=== PATIENT | female | born 2005 | race Caucasian/White ===

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

== ENCOUNTER 2024-08-04 08:59 | Inpatient (IN) | payer SELFPAY ==
[2024-08-04] VITALS (18 sets, daily range): BP systolic 104–167; BP diastolic 54–82; PULSE 57–102; RESP 16–17; TEMP 36.7–37.1; O2SAT 97
--- NOTE | 2024-08-04 09:05 | PM.DELIVERY ---
Delivery Note: Date of delivery: August 04, 2024 Pre-delivery diagnoses: patient with no care transfer from outside clinic arrived with painful uterine contractions cervical exam showed complete dilatation, head at +3 station Post-delivery diagnoses: patient delivered after one push vigorous female infant cord gases and blood obtained normal placenta and cord right labial laceration, hemostatic, not repaired otherwise intact perineum Procedure: vaginal delivery Op report anesthesia: None Delivering Physician: Oneil Baxter MD Estimated blood loss (mL): 300 Findings: patient delivered after one push vigorous female cord gases and blood obtained normal placenta and cord right labial laceration, hemostatic, not repaired otherwise intact perineum Delivery: vaginal Post-Delivery Status: good A&P Assessment and plan (1) Vaginal delivery: Coding Level of Care Code Acute Code for Chg Fwd Diagnoses Vaginal delivery O80 Time Spent (min) 60
--- NOTE | 2024-08-04 09:05 | P.PN_ITS ---
MANGLE TENDER Subjective 2 Subjective: Interval history: August 04, 2024, 0750 Telephone call from chief librarian branch or department at [facility] Provider at [facility] called, requesting transfer of a patient with no care, Presented there in active labor Cervix at 5 cm I informed CNO that since the patient is not stable for transfer, I will decline the transfer. Labor: Station: +2 Amniotic Membrane Status: Ruptured Vitals/I&O/Wt Last Vital Signs Temp 98 F 08/05/24 13:16 Pulse 70 08/05/24 13:16 Resp 16 08/05/24 13:16 BP 115/73 08/05/24 13:16 Pulse Ox 98 08/05/24 13:16 O2 Del Method Room Air 08/05/24 09:41 Weight last 48 hrs Weight 131 lb Data 08/04/24 20:59 Attestations 2 Medical Necessity Statement*: telephone call Coding Level of Care Code Acute Code for Chg Fwd Time Spent (min) 10
--- NOTE | 2024-08-04 09:10 | P.PN_ITS ---
TANK TRUCK OPERATOR Subjective 2 Subjective: Interval history: August 04, 2024, [address] Morales of [facility] He urgently requesting transfer of patient There is no ob or pediatric service at his facility, which is more a clinic than ER It would be extremely dangerous for a premature fetus if it is delivered at the clinic the distance from clinic to [facility], is 30 minutes, while it will take more than 60-90 minutes to get an NICU to send a crew to his facility Due to the very limited time window available, the dire circumstances, and the sole consideration for the welfare of the mother and fetus, I accepted the transfer with the understanding that the patient may deliver or suffer complications en route. Labor: Station: +2 Amniotic Membrane Status: Ruptured Vitals/I&O/Wt Last Vital Signs Temp 98 F 08/05/24 13:16 Pulse 70 08/05/24 13:16 Resp 16 08/05/24 13:16 BP 115/73 08/05/24 13:16 Pulse Ox 98 08/05/24 13:16 O2 Del Method Room Air 08/05/24 09:41 Weight last 48 hrs Weight 131 lb Data 08/04/24 20:59 Attestations 2 Medical Necessity Statement*: telephone call Coding Level of Care Code Acute Code for Chg Fwd Time Spent (min) 10
--- NOTE | 2024-08-04 09:15 | PM.OBGYHP ---
Providers/Chief Complaint Admitting Physician: Oneil Baxter MD Primary PROBE OPERATOR: none Primary Care Provider: Octavio Hidalgo Chief Complaint: Active labor unknown gestation HPI PROBE OPERATOR History of Present Illness August 04, 2024, 909 Brief H&P Patient arrived in L&D delivering See delivery note Unable to obtain complete history and physical 18 y.o. No care for this Previous resulted in vaginal delivery of stillbirth at 37 weeks Patient does not know cause of stillbirth No other medical or surgical history On no medications Patient admitted for vaginal delivery and care Present Details : 4 Para: 1 Labs Rubella: Non-Immune RPR: Negative GBS: Unknown Medications/Allergies Home Medications Medication Instructions Recorded Confirmed Last Taken Type fluoxetine 10 mg capsule 10 mg PO DAILY 08/04/24 08/04/24 Unknown History ferrous fumarate-folic acid 324 mg 1 tab PO DAILY #30 tabs 08/05/24 Unknown Rx (106 mg iron)-1 mg tablet (Hemocyte-F) Allergies Allergy/AdvReac Type Severity Reaction Status Date / Time No Known Allergies Allergy Verified 09/06/20 10:31 PFSH PROBE OPERATOR PFSH: Medical History (Updated 08/04/24 @ 13:14 by Oneil Baxter MD) Restrictive airway disease Lower respiratory infection Threatened Vitals/I&O/Wt Last Vital Signs Temp 98 F 08/05/24 13:16 Pulse 70 08/05/24 13:16 Resp 16 08/05/24 13:16 BP 115/73 08/05/24 13:16 Pulse Ox 98 08/05/24 13:16 O2 Del Method Room Air 08/05/24 09:41 Weight last 48 hrs Weight 131 lb Data 08/04/24 20:59 Results Labs OB ([facility]): Obstetrics US 08/21/20 Blood Type O Positive 08/04/24 Antibody Screen Negative 08/04/24 Hct 26.1 % (36-47) L 08/04/24 Hgb 8.00 g/dL (12.4-14.8) L 08/04/24 Rho(D) Type Rh positive 08/04/24 Plt Count 310 10^3/cmm (157-399) 08/04/24 Hep Bs Antigen Non-reactive (Nonreactive) 08/04/24 Rubella IgG Antibody 0.2 IU/mL (0.0-10.0) 08/04/24 RPR Nonreactive (Nonreactive) 08/04/24 HIV 1&2 Ab & HIV 1 Ag Non-reactive (Non-Reactiv) 08/04/24 C.trachomatis RNA (TMA) Not detected (NOT DETECTED) 08/04/24 N.gonorrhoeae RNA (TMA) Not detected (NOT DETECTED) 08/04/24 Chlamydia/GC Comment See note 08/04/24 Ser , Semi-Qnt 47204.00 mIU/mL 08/21/20 Urine Opiates Screen Negative ng/mL (Negative) 08/04/24 Ur Barbiturates Screen Negative ng/mL (Negative) 08/04/24 Ur Phencyclidine Scrn Negative ng/mL (Negative) 08/04/24 Ur Amphetamines Screen Positive ng/mL (Negative) H 08/04/24 U Benzodiazepines Scrn Negative ng/mL (Negative) 08/04/24 Urine Cocaine Screen Negative ng/mL (Negative) 08/04/24 U Marijuana (THC) Screen Positive ng/mL (Negative) H 08/04/24 Attestations Medical Necessity Statement*: patient with no care, presented with active labor, complete and +3 station Coding Level of Care Code Acute Code for Chg Fwd Time Spent (min) 60
[2024-08-04] MEDS: oxytocin 30 UNIT/500 ML BAG 600 UNIT IV (09:20)
[2024-08-04] MEDS: ondansetron 2 mg/ML SDV 2 mL 4 MG IVP (09:26)
[2024-08-04] MEDS: HYDROcodone-acetaminophen 5-325 mg Tablet PO ×2 (09:27→18:11)
[2024-08-04] MEDS: benzocaine-menthol 78 gm Canister 1 SPRAY TOPICAL (09:27)
[2024-08-04] MEDS: lidocaine 2% INJ 20 mL INJECTION (09:30)
[2024-08-04 09:45] LABS: Amphetamines Screen Urine Positive (Negative); Barbiturates Screen Urine Negative (Negative); Benzodiazepines Screen Urine Negative (Negative); Cocaine Screen Urine Negative (Negative); Opiate Screen Urine Negative (Negative); PCP Screen Urine Negative (Negative); THC Screen Urine Positive (Negative)
[2024-08-04] MEDS: ibuprofen 800 mg tablet PO ×3 (09:47→20:56)
[2024-08-04 09:51] LABS: Basophils % 0.2 %; Eosinophils % 0.1 %; Hematocrit 30.2 % (36-47); Lymphocytes # 1.1 10^3/uL (1.5-6.5); Lymphocytes % 6.3 %; Mean Corpuscular HGB Conc 30.8 g/dL (30-55); Mean Corpuscular Hemoglobin 25.8 pg (27-33); Mean Corpuscular Volume 83.7 fl (85-98); Monocytes # 0.6 10^3/uL (0.2-0.9); Monocytes % 3.6 %; Neutrophils # 15.53 10^3/uL (1.8-8.0); Neutrophils % 89.2 %; Nucleated Red Blood Cells % 0 %; Platelet Count 291 10^3/cmm (157-399); Red Blood Count 3.61 10^6/uL (3.85-5.65); White Blood Count 17.42 10^3/uL (4.5-13.0)
[2024-08-04 10:19] LABS: Hepatitis B Surface Antigen Non-Reactive (Nonreactive)
[2024-08-04 10:22] LABS: Rubella IgG 0.2 IU/mL (0.0-10.0)
[2024-08-04 10:29] LABS: Rapid Plasma Reagin Syphilis Nonreactive (Nonreactive)
[2024-08-04 10:51] LABS: HIV 1 & 2 Antibody Non-Reactive (Non-Reactiv); HIV 1 & 2 Antigen Non-Reactive (Non-Reactiv)
--- NOTE | 2024-08-04 11:15 | PC.NURSE ---
Report received from SHER Parikh at [facility] at 0826 that pt is coming via ambulance, unknown gestation, probable active labor, 5cm dilation. Pt arrived to department via EMS at 0859. Pt taken immediately to OB4 and moved to bed. SVE by RN pt 10cm/100%/+[address] Baxter at bedside and prepping for delivery. Dr Mohr called at office to come for delivery of unknown gestation. Pt encouraged to push and delivered a viable female at 0901. Baby was dried/stimulated and assessed on mothers abdomen, then cord was clamped/cut by Dr Baxter and baby taken to warmer for further assessment at 0902. Placenta was delivered at 0915 intact, pitocin bolus given as ordered. Straight cath urine collection after alice care performed. Chux changed and pt instructed to call nursing for assistance getting up out of bed the first time. Routine labs drawn x1 stick to right hand. Routine post care discussed with pt and family.
[2024-08-04] MEDS: docusate sodium 100 mg Capsule PO (18:11)
[2024-08-04 21:10] LABS: Hematocrit 26.1 % (36-47); Mean Corpuscular HGB Conc 30.7 g/dL (30-55); Mean Corpuscular Hemoglobin 25.6 pg (27-33); Mean Corpuscular Volume 83.4 fl (85-98); Mean Platelet Volume 10.9 fL (7.4-10.4); Platelet Count 310 10^3/cmm (157-399); Red Blood Count 3.13 10^6/uL (3.85-5.65); White Blood Count 13.35 10^3/uL (4.5-13.0)
[2024-08-05 05:59] VITALS: BP 118/67; PULSE 85; RESP 16; TEMP 36.6; O2SAT 99
[2024-08-05] MEDS: HYDROcodone-acetaminophen 5-325 mg Tablet PO (06:21)
--- NOTE | 2024-08-05 08:09 | PC.NURSE ---
THIS RN OBSERVED PATIENT HOLDING IN HER BED, PATIENT APPEARED VERY DROWSY. EDUCATION PROVIDED THAT IF SHE WAS SLEEPY SHE NEEDED TO PLACE INFANT IN CRIB FOR SAFETY, PATIENT VERBALLY ACKNOWLEDGED THE EDUCATION AND HER SIGNIFICANT OTHER ALSO VERBALLY ACKNOWLEDGED THAT INFANT SHOULD BE PLACED IN CRIB IF THEY ARE SLEEPY.
[2024-08-05] MEDS: ibuprofen 800 mg tablet PO (08:58)
[2024-08-05] MEDS: docusate sodium 100 mg Capsule PO (08:58)
[2024-08-05] MEDS: PRENATAL VIT NO.130/IRON/FOLIC 1 EACH TABLET PO (08:58)
[2024-08-05 09:41] VITALS: BP 105/68; PULSE 70; RESP 15; TEMP 36.6; TEMP 36.7; O2SAT 98
--- NOTE | 2024-08-05 13:10 | P.PN_ITS ---
TUFTING MACHINE FIXER Subjective 2 Subjective: Interval history: no c/o no bleeding, pain eating, voiding, ambulating well caring for without any problems Labor: Station: +2 Amniotic Membrane Status: Ruptured Vitals/I&O/Wt Last Vital Signs Temp 98 F 08/05/24 13:16 Pulse 70 08/05/24 13:16 Resp 16 08/05/24 13:16 BP 115/73 08/05/24 13:16 Pulse Ox 98 08/05/24 13:16 O2 Del Method Room Air 08/05/24 09:41 Weight last 48 hrs Weight 131 lb Physical Exam 2 Narrative: afebrile, VS normal comfortable, awake, alert Abd: soft, nontender. fundus firm Ext: no edema; nontender Data 08/04/24 20:59 A&P Assessment and plan (1) Vaginal delivery: PPD #1 doing well discharge to home today instructions and precautions given call/return if fever, chills, headache, blurry vision, nausea, vomiting, abdominal pain; vaginal bleeding or discharge; shortness of breath, chest pain, leg pains or swelling; inability to void, perineal pain or swelling; feelings of depression or mood changes; thoughts of suicide or harming others; inability to care for baby. (2) Anemia: Rx ferrous fumarate one po daily f/u in 2 weeks or PRN Attestations 2 Medical Necessity Statement*: patient s/p vaginal delivery, plan to discharge to home today Coding Level of Care Code Acute Code for Chg Fwd Diagnoses Vaginal delivery O80 Anemia D64.9 Time Spent (min) 20
[2024-08-05 13:16] VITALS: BP 115/73; PULSE 70; RESP 16; TEMP 36.6; O2SAT 98
--- NOTE | 2024-08-05 13:30 | PM.OBGYDC ---
Discharge Providers COMPASS OPERATOR Date of Admission: 08/04/24 08:59 Date of Discharge: 08/05/24 Attending Provider at Admission: Oneil Baxter MD Attending Provider at Discharge: Oneil Baxter MD Consults: none Primary COMPASS OPERATOR: none Primary Care Provider: Octavio Hidalgo Diagnoses at Discharge Discharge Diagnosis (1) Vaginal delivery: Details from hospital stay: 18 y.o. no care unknown gestational age presented with active labor, transfer from another facility cervical exam on arrival was complete, +3 station, cephalic presentation patient delivered vaginally without any complications urine drug screen was positive for amphetamines and marijuana there were no complications and patient was discharged to home on the first day Status: Acute (2) Anemia: Details from hospital stay: patient was discharged with prescription for ferrous fumarate one po daily Status: Acute Reason for Visit Reason for Visit: Active labor unknown gestation Brief History: 18 y.o. no care unknown gestational age presented with active labor, transfer from another facility Hospital Course Hospital Course 18 y.o. no care unknown gestational age presented with active labor, transfer from another facility cervical exam on arrival was complete, +3 station, cephalic presentation patient delivered vaginally without any complications urine drug screen was positive for amphetamines and marijuana there were no complications and patient was discharged to home on the first day Information Peripartum Data: Delivery Method: Vaginal Laceration description: Labial Episiotomy description: None complications: none Physical Exam Narrative: afebrile, VS normal comfortable, awake, alert Abd: soft, nontender. fundus firm Ext: no edema; nontender Discharge Data Studies Completed and Pending Laboratory Results WBC 13.35 10^3/uL (4.5-13.0) H 08/04/24 20:59 RBC 3.13 10^6/uL (3.85-5.65) L 08/04/24 20:59 Hgb 8.00 g/dL (12.4-14.8) L 08/04/24 20:59 Hct 26.1 % (36-47) L 08/04/24 20:59 MCV 83.4 fl (85-98) L 08/04/24 20:59 MCH 25.6 pg (27-33) L 08/04/24 20:59 MCHC 30.7 g/dL (30-55) 09/24/24 20:59 RDW 14.0 % (12.1-15.1) 08/04/24 20:59 Plt Count 310 10^3/cmm (157-399) 08/04/24 20:59 MPV 10.9 fL (7.4-10.4) H 08/04/24 20:59 Neut % (Auto) 89.2 % 08/04/24 09:35 Lymph % (Auto) 6.3 % 08/04/24 09:35 [place] % (Auto) 3.6 % 08/04/24 09:35 Eos % (Auto) 0.1 % 08/04/24 09:35 Baso % (Auto) 0.2 % 08/04/24 09:35 Neut # (Auto) 15.53 10^3/uL (1.8-8.0) H 08/04/24 09:35 Lymph # (Auto) 1.1 10^3/uL (1.5-6.5) L 08/04/24 09:35 [place] # (Auto) 0.6 10^3/uL (0.2-0.9) 08/04/24 09:35 Eos # (Auto) 0.0 10^3/uL (0.0-0.8) 08/04/24 09:35 Baso # (Auto) 0.0 10^3/uL (0.0-0.1) 08/04/24 09:35 Nucleated RBC % (auto) 0 % 08/04/24 09:35 Nucleated RBCs # 0.0 /100WBC 08/04/24 09:35 Urine Opiates Screen Negative ng/mL (Negative) 08/04/24 09:25 Ur Barbiturates Screen Negative ng/mL (Negative) 08/04/24 09:25 Ur Phencyclidine Scrn Negative ng/mL (Negative) 08/04/24 09:25 Ur Amphetamines Screen Positive ng/mL (Negative) H 08/04/24 09:25 U Benzodiazepines Scrn Negative ng/mL (Negative) 08/04/24 09:25 Urine Cocaine Screen Negative ng/mL (Negative) 08/04/24 09:25 U Marijuana (THC) Screen Positive ng/mL (Negative) H 08/04/24 09:25 RPR Nonreactive (Nonreactive) 08/04/24 09:35 C.trachomatis RNA (TMA) Not detected (NOT DETECTED) 08/04/24 09:25 Chlamydia/GC Comment See note 08/04/24 09:25 Hep Bs Antigen Non-reactive (Nonreactive) 08/04/24 09:35 HIV 1&2 Ab & HIV 1 Ag Non-reactive (Non-Reactiv) 08/04/24 09:35 HIV 1&2 Antibody Non-reactive (Non-Reactiv) 08/04/24 09:35 N.gonorrhoeae RNA (TMA) Not detected (NOT DETECTED) 08/04/24 09:25 Rubella IgG Antibody 0.2 IU/mL (0.0-10.0) 08/04/24 09:35 Blood Type O Positive 08/04/24 09:35 Rho(D) Type Rh positive 08/04/24 09:35 Antibody Screen Negative 08/04/24 09:35 Procedures Performed vaginal delivery Vitals Last Vital Signs Temp 98 F 08/05/24 13:16 Pulse 70 08/05/24 13:16 Resp 16 08/05/24 13:16 BP 115/73 08/05/24 13:16 Pulse Ox 98 08/05/24 13:16 O2 Del Method Room Air 08/05/24 09:41 Results Labs OB ([facility]): Obstetrics US 08/21/20 Blood Type O Positive 08/04/24 Antibody Screen Negative 08/04/24 Hct 26.1 % (36-47) L 08/04/24 Hgb 8.00 g/dL (12.4-14.8) L 08/04/24 Rho(D) Type Rh positive 08/04/24 Plt Count 310 10^3/cmm (157-399) 08/04/24 Hep Bs Antigen Non-reactive (Nonreactive) 08/04/24 Rubella IgG Antibody 0.2 IU/mL (0.0-10.0) 08/04/24 RPR Nonreactive (Nonreactive) 08/04/24 HIV 1&2 Ab & HIV 1 Ag Non-reactive (Non-Reactiv) 08/04/24 C.trachomatis RNA (TMA) Not detected (NOT DETECTED) 08/04/24 N.gonorrhoeae RNA (TMA) Not detected (NOT DETECTED) 08/04/24 Chlamydia/GC Comment See note 08/04/24 Ser , Semi-Qnt 89491.00 mIU/mL 08/21/20 Urine Opiates Screen Negative ng/mL (Negative) 08/04/24 Ur Barbiturates Screen Negative ng/mL (Negative) 08/04/24 Ur Phencyclidine Scrn Negative ng/mL (Negative) 08/04/24 Ur Amphetamines Screen Positive ng/mL (Negative) H 08/04/24 U Benzodiazepines Scrn Negative ng/mL (Negative) 08/04/24 Urine Cocaine Screen Negative ng/mL (Negative) 08/04/24 U Marijuana (THC) Screen Positive ng/mL (Negative) H 08/04/24 Discharge Plan Discharge Patient Disposition: Home Condition: Stable Prescriptions: New Hemocyte-F 324 mg (106 mg iron)-1 mg tablet 1 tab PO DAILY Qty: 30 12RF Rx Instructions: administer between meals Continued fluoxetine 10 mg Capsule 10 mg PO DAILY Discharge Orders: Discharge Order (Routine); Ordered 08/05/24 Ordered By: Oneil Baxter Referrals: Za Delgadillo NP [Nurse Practitioner] - 08/18/24 1:15 pm Discharge Diet: Usual diet Discharge Activity: Increase activity as tolerated Patient Instructions: Depression (DC), Opioid Safety (DC), Preeclampsia and Eclampsia After Delivery (GEN), Hemorrhage (DC), OB Discharge Report, OB Food/Drug Interaction Guide, Opioid Safety, OB Home Care, OB Vaginal Deliveries - [facility], Abnormal Bleeding Activity Restrictions/Additional Instructions: Please make appointment for two weeks in clinic Discharge Attestations COMPASS OPERATOR Time Spent in Discharge Care*: less than 30 min Coding Level of Care Code Acute Code for Chg Fwd Diagnoses Vaginal delivery O80 Anemia D64.9 Time Spent (min) 20
[2024-08-05 15:43] LABS: Chlamydia Trachomatis RNA TMA NOT DETECTED (NOT DETECTED); Neisseria Gonorrhoeae RNA, TMA NOT DETECTED (NOT DETECTED)
== END 2024-08-05 13:18 | disposition home or self-care (01) | DRG 807 ==
PROVIDERS: Admitting Provider Obstetrics & Gynecology; PCP Nurse Practitioner Family; Visit Provider Obstetrics & Gynecology
DX: O99.013 Anemia complicating pregnancy, third trimester (principal); Z37.0 Single live birth; D64.9 Anemia, unspecified; O70.0 First degree perineal laceration during delivery; Z3A.00 Weeks of gestation of pregnancy not specified
CPT/HCPCS: 36415; 59409; 80306; 85025; 85027; 86592; 86762; 86850; 86900; 87340; 87491; 87591; 87806; 98960; J2405; J2590

== ENCOUNTER 2025-08-21 13:38 | Emergency (ER) | payer MEDICAID, SELFPAY ==
--- OUTSIDE RECORDS SUMMARY | 2018-01-09 04:47 | XMS_ITS | Continuity of Care Document ---
Author Organization [facility] Address [address] et [address] [place] [address] Phone Care Team Providers Care Regional Director Name Role Phone Unavailable Unavailable Unavailable Advance Directives Directive Yes / No Effective Date File Name No Information Encounters Encounter Description Practice Location Reason(s) For Visit Diagnoses Date Provider Providers Copied on Encounter [facility], [place], [address] [place] [address], [id number], [place] tel:[phone] [facility] No Information Mar-0 1-201 8 No Information Family History Family Member Type Diagnosis Age At Onset Distant Relative Problem (finding) Marfan syndrome Problem (finding) No family history of Craft dden Problem (finding) No family hist ory of Diabetes Mellitus Problem (finding) No family hist ory of Cardiomyopathy - hypertrophic Maternal Grandmother Problem (finding) Marfan syndrome Mother Problem (finding) Marfan syndrome Problem (finding) No family hist ory of Cardiomyopathy - dilated Problem (finding) No family hist ory of Congenital Heart Disease Problem (finding) No family history of Ar rhythmia Problem (finding) No family history of Hy pertension Problem (finding) No family hist ory of Premature CAD Payers Payer name Insurance type Covered alliance party ID Authoriza tion(s) [facility] [id number] Social History Type Description Quantity Date Captured Comments Sex Female Smoking Status No Information Chief Complaint And Reason For Visit No Information History Of Present Illness Encounter Date Complaint History Of Prese nt Illness No Information Instructions Date Instruction Additional Infor mation No Information Assessments Type Assessment Date No Information
[2025-08-21 13:34] VITALS: BP 95/70; PULSE 107; RESP 18; TEMP 36.7; O2SAT 100; BMI 16.1
--- NOTE | 2025-08-21 13:42 | USR_ITS ---
PROCEDURE INFORMATION: Exam: US Pelvis, Transvaginal, Non-Obstetric Exam date and time: 08/21/2025 2:19 PM Age: 19 years old Clinical indication: Other: Bleeding; Additional info: Vaginal bleeding/pain TECHNIQUE: Imaging protocol: Real-time transvaginal pelvic (non-obstetric) ultrasound with image documentation. Transvaginal imaging was used for better evaluation of the endometrium, adnexa, and/or cervix. COMPARISON: US OB <=14 wk fetus w transvag 08/21/2020 9:14 AM FINDINGS: Uterus: Endometrial stripe is normal for premenopausal woman measuring 8 mm. Right ovary/adnexa: Right ovary 6 mm hyperechoic area may reflect a small hemorrhagic follicle, consider short-term follow-up in 4-6 weeks to assess for resolution. Color blood flow is seen in the right ovary. Left ovary/adnexa: Normal. No mass. Normal ovarian blood flow on color Doppler. Urinary bladder: Urinary bladder is limited. Intraperitoneal space: No free fluid. US/US transvaginal [id number] IMPRESSION: Right ovary 6 mm hyperechoic area may reflect a small hemorrhagic follicle, consider short-term follow-up in 4-6 weeks to assess for resolution. Color blood flow is seen in the right ovary.
--- NOTE | 2025-08-21 13:47 | ED_ITS ---
Documented by User: [email or web address] Douglas 08/21/25 16:48 HPI - Female Genitourinary 2 General: Chief complaint: Vaginal Bleeding Stated complaint: VAG BLEEDING Source: patient Mode of arrival: EMS Limitations: no limitations History of Present Illness: Patient is a 19-year-old female, A1 who presents to the emergency department by EMS, from shelter, due to vaginal bleeding. She states that she is a couple of weeks late on her menstrual cycle, and had sudden onset bleeding today with pain and states that she has never had pain with menstruation. She is also reporting lower abdominal cramping and feeling dizzy. She reportedly had court yesterday, arrives requesting phone calls. No other pertinent female history, denies history of ectopic or torsion or tubo-ovarian abscess. Denies any chest pain, shortness of breath, vomiting/diarrhea. She is noting some nausea at this time. Also is requesting something to eat. Vitals are stable at this time. She does not take any oral contraceptive pills. Denies any syncope. MD elicited complaint: vaginal bleeding Pertinent past history: prior miscarriages Onset (ago): hour(s) Quality of pain: cramping Consistency: constant Vaginal discharge: none Vaginal bleeding: moderate Associated symptoms: Reports abdominal pain and nausea; Deny headache(s) or vaginal discharge Related Data Previous Rx's ?Medication ?Instructions ?Recorded doxycycline hyclate 100 mg tablet 100 mg PO BID 7 days #14 tabs 08/21/25 Allergies Allergy/AdvReac Type Severity Reaction Status Date / Time No Known Allergies Allergy Verified 08/20/24 10:46 Review of Systems 2 General: Reports: 10 or more systems reviewed and unremarkable except in HPI and below Const: Denies: fever(s), chills, change in appetite, change in weight or diaphoresis ENMT: Denies: throat pain or hoarseness Card: Denies: chest pain, palpitations or lightheadedness Resp: Denies: dyspnea, productive cough or wheezing GI: Reports: abdominal pain, nausea and GI cramping; Denies: vomiting, diarrhea, constipation, bloating, change in stool character or hematochezia : Reports: vaginal bleeding and dysmenorrhea; Denies: flank pain, difficulty voiding, dysuria, urinary frequency, urinary urgency or vaginal discharge Musc: Denies: neck pain or back pain Skin/Breast: Denies: rash or new lesions Neuro: Denies: headache(s) or dizziness PFSH ED 2 PFSH: Medical History Vaginal delivery Restrictive airway disease Lower respiratory infection Threatened Physical Exam 2 Const: COMMON NORMALS: no acute distress, patient oriented x3, no limitations, healthy appearing, alert and well nourished GENERAL APPEARANCE: cooperative and anxious NUTRITIONAL APPEARANCE: thin ORIENTATION/CONSCIOUSNESS: Yes awake OTHER: nontoxic Neck/C-Spine: COMMON NORMALS: full ROM, supple and no meningeal signs Resp: COMMON NORMALS: normal respiratory effort, No retractions, No use of accessory muscles and clear to auscultation bilaterally AUSCULTATION: clear to auscultation bilaterally, no crackles, no rales, no rhonchi and no wheezes Cardio: COMMON NORMALS: regular rate, regular rhythm, No gallops present (Cardio), No clicks present (Cardio), No murmurs present (Cardio), No rub (Cardio) and Peripheral pulses 2+ throughout RATE: regular rate RHYTHM: r egular rhythm PERIPHERAL PULSES: Peripheral pulses 2+ throughout GI: COMMON NORMALS: Normal to inspection, nondistended, normoactive bowel sounds present, Soft to palpation, non-tender, No hepatosplenomegaly present and no masses AUSCULTATION: Yes normoactive bowel sounds PALPATION: Yes Soft to palpation, No Guarding due to palpation present (GI), No Rigid due to palpation and Yes No hepatosplenomegaly present RECTAL EXAM: deferred Extremity: COMMON NORMALS: normal to inspection and full ROM Neuro: COMMON NORMALS: patient oriented x3, moves all extremities, no focal motor deficits and no sensory deficits noted SENSORIUM/ORIENTATION: Yes alert MENINGEAL SIGNS: Yes no meningeal signs Psych: COMMON NORMALS: mental status grossly normal, cooperative and speech normal SPEECH: Yes normal speech Skin: COMMON NORMALS: no rashes or lesions noted GENERAL SKIN EXAM: no rashes or lesions noted Course 2 Vital Signs: Vital signs: Vital Signs Temperature 98.1 F 08/21/25 13:34 Pulse Rate 107 H 08/21/25 13:34 Respiratory Rate 18 08/21/25 13:34 Blood Pressure 95/70 08/21/25 13:34 Pulse Oximetry 100 08/21/25 13:34 Oxygen Delivery Me thod Room Air 08/21/25 13:34 MDM - Female Medical Decision Making Patient presented from shelter for reports of vaginal bleeding and abdominal cramping. History of 3 prior pregnancies, 2 of which resulted in live births and 1 miscarriage. On exam nontoxic-appearing, she is thin but there is no abdominal tenderness to palpation. Bleeding has since stopped since coming to the ED. All of her lab work is unremarkable, negative . Urinalysis does show evidence of trichomonas and she will be treated with 2 mg p.o. metronidazole here in the emergency department and to be started on doxycycline for empiric coverage of other STI. Transvaginal ultrasound does not show any signs of ectopic or torsion. Overall she is stable for discharge home, she will be referred to [facility] for dysfunctional uterine bleeding and ultimately discharged stable condition at this time. Lab Data 08/21/25 13:48 08/21/25 13:48 Radiology Impressions Transvaginal US 08/21/25 13:42 IMPRESSION: Right ovary 6 mm hyperechoic area may reflect a small hemorrhagic follicle, consider short-term follow-up in 4-6 weeks to assess for resolution. Color blood flow is seen in the right ovary. Laboratory Results WBC 9.52 10^3/uL (3.29-11.43) 08/21/25 13:48 RBC 4.94 10^6/uL (3.85-5.65) 08/21/25 13:48 Hgb 13.40 g/dL (11.27-16.99) 08/21/25 13:48 Hct 43.2 % (36-47) 08/21/25 13:48 MCV 87.4 fl (85-98) 08/21/25 13:48 MCH 27.1 pg (27-33) 08/21/25 13:48 MCHC 31.0 g/dL (30-55) 08/21/25 13:48 RDW 13.5 % (12.1-15.1) 08/21/25 13:48 Plt Count 332 10^3/cmm (157-399) 08/21/25 13:48 MPV 9.6 fL (7.4-10.4) 08/21/25 13:48 Neut % (Auto) 77.1 % 08/21/25 13:48 Lymph % (Auto) 17.2 % 08/21/25 13:48 [place] % (Auto) 4.4 % 08/21/25 13:48 Eos % (Auto) 0.5 % 08/21/25 13:48 Baso % (Auto) 0.6 % 08/21/25 13:48 Neut # (Auto) 7.33 10^3/uL (1.8-7.7) 08/21/25 13:48 Lymph # (Auto) 1.6 10^3/uL (0.8-4.8) 08/21/25 13:48 [place] # (Auto) 0.4 10^3/uL (0.2-0.9) 08/21/25 13:48 Eos # (Auto) 0.1 10^3/uL (0.0-0.8) 08/21/25 13:48 Baso # (Auto) 0.1 10^3/uL (0.0-0.1) 08/21/25 13:48 Nucleated RBC % (auto) 0 % 08/21/25 13:48 Nucleated RBCs # 0.0 /100WBC 08/21/25 13:48 Sodium 139 mmol/L (136-145) 08/21/25 13:48 Potassium 3.8 mmol/L (3.5-5.1) 08/21/25 13:48 Chloride 103 mmol/L (98-107) 08/21/25 13:48 Carbon Dioxide 23 mmol/L (22-29) 08/21/25 13:48 Anion Gap 16.8 (5-19) 08/21/25 13:48 BUN 14 mg/dL (6-20) 08/21/25 13:48 Creatinine 0.8 mg/dL (0.5-0.9) 08/21/25 13:48 GFR Calculation 90.5 mL/min (90-130) 08/21/25 13:48 Glucose 87 mg/dL (65-115) 08/21/25 13:48 Calculated Osmolality 288 mOsm/kg (285-295) 08/21/25 13:48 Calcium 9.2 mg/dL (8.5-10.5) 08/21/25 13:48 Total Bilirubin 0.4 mg/dL (0.15-1.2) 08/21/25 13:48 AST 15 U/L (0-32) 08/21/25 13:48 ALT 10 U/L (0-33) 08/21/25 13:48 Alkaline Phosphatase 69 U/L (35-105) 08/21/25 13:48 Total Protein 7.8 g/dL (6.6-8.7) 08/21/25 13:48 Albumin 4.3 g/dL (3.5-5.2) 08/21/25 13:48 Globulin 3.5 g/dL (1.3-4.6) 08/21/25 13:48 HCG, Qual Negative (Negative) 08/21/25 13:48 Urine Color Yellow (Yellow) 08/21/25 15:46 Urine Appearance Clear (CLEAR) 08/21/25 15:46 Urine pH 5 (5-7) 08/21/25 15:46 Ur Specific [place] 1.020 (1.005-1.030) 08/21/25 15:46 Urine Protein 1+ (Negative) H 08/21/25 15:46 Urine Glucose (UA) Norm (Normal) 08/21/25 15:46 Urine Ketones 1+ (Negative) H 08/21/25 15:46 Urine Blood 3+ (Negative) H 08/21/25 15:46 Urine Nitrate Positive (Negative) A 08/21/25 15:46 Urine Bilirubin Neg (Negative) 08/21/25 15:46 Urine Urobilinogen Neg mg/dL (Negative) 08/21/25 15:46 Ur Leukocyte Esterase 2+ (Negative) H 08/21/25 15:46 Urine RBC 5-10 /hpf (0-2) H 08/21/25 15:46 Urine WBC 25-40 /hpf (0-5) H 08/21/25 15:46 Ur Squamous Epith Cells 15-25 /hpf (0-5) H 08/21/25 15:46 Amorphous Sediment Not Reportable 08/21/25 15:46 Urine Bacteria 3+ /hpf (NONE) H 08/21/25 15:46 Hyaline Casts 0-4 /lpf H 08/21/25 15:46 Urine Mucus 1+ /hpf 08/21/25 15:46 Urine Trichomonas 1+ /hpf H 08/21/25 15:46 Blood Type O Positive 08/21/25 13:48 Rho(D) Type Rh positive 08/21/25 13:48 Antibody Screen Negative 08/21/25 13:48 All radiology interpretation(s) finalized by discharge Discharge Plan Discharge Patient Disposition: Home Clinical Impression: Dysfunctional uterine bleeding, Trichomonal vaginitis Condition: Stable Prescriptions: New doxycycline hyclate 100 mg tablet 100 mg PO BID 7 Days Qty: 14 0RF Discharge Orders: Discharge ED (Routine); Ordered 08/21/25 Ordered By: Cortes Julio Referrals: Octavio Hidalgo FNP [Primary Care Provider, Family Practice] Patient Instructions: Patient Portal & Jos Instructions Activity Restrictions/Additional Instructions: Discharge Instructions: DUB & STI Diagnosis and Treatment: - You have been diagnosed with dysfunctional uterine bleeding and trichomoniasis , a common sexually transmitted infection (STI). - You received a single dose of metronidazole (2 grams) in the emergency department to treat trichomoniasis. - You are starting doxycycline 100 mg twice daily for 7 days for possible additional infection coverage. What to Expect: - Metronidazole should help clear the trichomoniasis infection and reduce symptoms such as vaginal discharge, irritation, or discomfort. - Doxycycline is used to treat possible bacterial infections that can cause cervicitis or pelvic inflammatory disease. - Some side effects of these medications may include nausea, stomach upset, or sensitivity to sunlight. Take doxycycline with a full glass of water and avoid lying down for 30 minutes after taking it. Important Instructions: - Do not have sex for at least 7 days after treatment, and until both you and your partner(s) have completed treatment and are free of symptoms. This helps prevent spreading the infection or getting re-infected. - Your sexual partner(s) should also be treated for trichomoniasis, even if they do not have symptoms, to prevent reinfection. - Avoid alcohol while taking metronidazole and for 24 hours after the last dose, as it can cause unpleasant reactions. - If you experience severe abdominal pain, fever, heavy bleeding, or symptoms that worsen, seek medical attention promptly. Follow-Up: - You will be referred to an [facility] specialist for further evaluation and management of your bleeding and to ensure all infections are treated appropriately. - Return for follow-up testing in about 3 months to make sure the infection is cleared, as recommended for trichomoniasis. - If you have not already been tested for other STIs (such as HIV or syphilis), this will be done at your follow-up visit. General Advice: - Take all medications as prescribed, even if you start feeling better. - Use pads instead of tampons if you are experiencing abnormal bleeding. - Keep a record of your symptoms and any side effects from medications to discuss at your next appointment. Contact Information: - If you have questions or concerns, or if your symptoms worsen, contact your healthcare provider or return to the emergency department. Next Steps: - Attend your scheduled [facility] appointment. - Ensure your partner(s) are treated. - Abstain from sexual activity until cleared by your provider. Thank you for following these instructions to help ensure your recovery and prevent complications. Print Language: Frisian Coding Level of Care Code ED Cloth Folder Hand for Chg Fwd Documented by User: Modesto Leone DO 08/21/25 17:09 HPI - Female Genitourinary 2 General: Chief complaint: Vaginal Bleeding Stated complaint: VAG BLEEDING Related Data Previous Rx's ?Medication ?Instructions ?Recorded doxycycline hyclate 100 mg tablet 100 mg PO BID 7 days #14 tabs 08/21/25 Allergies Allergy/AdvReac Type Severity Reaction Status Date / Time No Known Allergies Allergy Verified 08/20/24 10:46 [facility] ED 2 PFS: Medical History Vaginal delivery Restrictive airway disease Lower respiratory infection Threatened Course 2 Vital Signs: Vital signs: Vital Signs Temperature 98.1 F 08/21/25 13:34 Pulse Rate 107 H 08/21/25 13:34 Respiratory Rate 18 08/21/25 13:34 Blood Pressure 95/70 08/21/25 13:34 Pulse Oximetry 100 08/21/25 13:34 Oxygen Delivery Me thod Room Air 08/21/25 13:34 MDM - Female Medical Decision Making Patient presented from shelter for reports of vaginal bleeding and abdominal cramping. History of 3 prior pregnancies, 2 of which resulted in live births and 1 miscarriage. On exam nontoxic-appearing, she is thin but there is no abdominal tenderness to palpation. Bleeding has since stopped since coming to the ED. All of her lab work is unremarkable, negative . Urinalysis does show evidence of trichomonas and she will be treated with 2 mg p.o. metronidazole here in the emergency department and to be started on doxycycline for empiric coverage of other STI. Transvaginal ultrasound does not show any signs of ectopic or torsion. Overall she is stable for discharge home, she will be referred to [facility] for dysfunctional uterine bleeding and ultimately discharged stable condition at this time. Chart reviewed and patient discussed with midlevel. Agree with assessment and plan. Lab Data 08/21/25 13:48 08/21/25 13:48 Radiology Impressions Transvaginal US 08/21/25 13:42 IMPRESSION: Right ovary 6 mm hyperechoic area may reflect a small hemorrhagic follicle, consider short-term follow-up in 4-6 weeks to assess for resolution. Color blood flow is seen in the right ovary. Laboratory Results WBC 9.52 10^3/uL (3.29-11.43) 08/21/25 13:48 RBC 4.94 10^6/uL (3.85-5.65) 08/21/25 13:48 Hgb 13.40 g/dL (11.27-16.99) 08/21/25 13:48 Hct 43.2 % (36-47) 08/21/25 13:48 MCV 87.4 fl (85-98) 08/21/25 13:48 MCH 27.1 pg (27-33) 08/21/25 13:48 MCHC 31.0 g/dL (30-55) 08/21/25 13:48 RDW 13.5 % (12.1-15.1) 08/21/25 13:48 Plt Count 332 10^3/cmm (157-399) 08/21/25 13:48 MPV 9.6 fL (7.4-10.4) 08/21/25 13:48 Neut % (Auto) 77.1 % 08/21/25 13:48 Lymph % (Auto) 17.2 % 08/21/25 13:48 [place] % (Auto) 4.4 % 08/21/25 13:48 Eos % (Auto) 0.5 % 08/21/25 13:48 Baso % (Auto) 0.6 % 08/21/25 13:48 Neut # (Auto) 7.33 10^3/uL (1.8-7.7) 08/21/25 13:48 Lymph # (Auto) 1.6 10^3/uL (0.8-4.8) 08/21/25 13:48 [place] # (Auto) 0.4 10^3/uL (0.2-0.9) 08/21/25 13:48 Eos # (Auto) 0.1 10^3/uL (0.0-0.8) 08/21/25 13:48 Baso # (Auto) 0.1 10^3/uL (0.0-0.1) 08/21/25 13:48 Nucleated RBC % (auto) 0 % 08/21/25 13:48 Nucleated RBCs # 0.0 /100WBC 08/21/25 13:48 Sodium 139 mmol/L (136-145) 08/21/25 13:48 Potassium 3.8 mmol/L (3.5-5.1) 08/21/25 13:48 Chloride 103 mmol/L (98-107) 08/21/25 13:48 Carbon Dioxide 23 mmol/L (22-29) 08/21/25 13:48 Anion Gap 16.8 (5-19) 08/21/25 13:48 BUN 14 mg/dL (6-20) 08/21/25 13:48 Creatinine 0.8 mg/dL (0.5-0.9) 08/21/25 13:48 GFR Calculation 90.5 mL/min (90-130) 08/21/25 13:48 Glucose 87 mg/dL (65-115) 08/21/25 13:48 Calculated Osmolality 288 mOsm/kg (285-295) 08/21/25 13:48 Calcium 9.2 mg/dL (8.5-10.5) 08/21/25 13:48 Total Bilirubin 0.4 mg/dL (0.15-1.2) 08/21/25 13:48 AST 15 U/L (0-32) 08/21/25 13:48 ALT 10 U/L (0-33) 08/21/25 13:48 Alkaline Phosphatase 69 U/L (35-105) 08/21/25 13:48 Total Protein 7.8 g/dL (6.6-8.7) 08/21/25 13:48 Albumin 4.3 g/dL (3.5-5.2) 08/21/25 13:48 Globulin 3.5 g/dL (1.3-4.6) 08/21/25 13:48 HCG, Qual Negative (Negative) 08/21/25 13:48 Urine Color Yellow (Yellow) 08/21/25 15:46 Urine Appearance Clear (CLEAR) 08/21/25 15:46 Urine pH 5 (5-7) 08/21/25 15:46 Ur Specific [place] 1.020 (1.005-1.030) 08/21/25 15:46 Urine Protein 1+ (Negative) H 08/21/25 15:46 Urine Glucose (UA) Norm (Normal) 08/21/25 15:46 Urine Ketones 1+ (Negative) H 08/21/25 15:46 Urine Blood 3+ (Negative) H 08/21/25 15:46 Urine Nitrate Positive (Negative) A 08/21/25 15:46 Urine Bilirubin Neg (Negative) 08/21/25 15:46 Urine Urobilinogen Neg mg/dL (Negative) 08/21/25 15:46 Ur Leukocyte Esterase 2+ (Negative) H 08/21/25 15:46 Urine RBC 5-10 /hpf (0-2) H 08/21/25 15:46 Urine WBC 25-40 /hpf (0-5) H 08/21/25 15:46 Ur Squamous Epith Cells 15-25 /hpf (0-5) H 08/21/25 15:46 Amorphous Sediment Not Reportable 08/21/25 15:46 Urine Bacteria 3+ /hpf (NONE) H 08/21/25 15:46 Hyaline Casts 0-4 /lpf H 08/21/25 15:46 Urine Mucus 1+ /hpf 08/21/25 15:46 Urine Trichomonas 1+ /hpf H 08/21/25 15:46 Blood Type O Positive 08/21/25 13:48 Rho(D) Type Rh positive 08/21/25 13:48 Antibody Screen Negative 08/21/25 13:48 Discharge Plan Discharge Patient Disposition: Home Clinical Impression: Dysfunctional uterine bleeding, Trichomonal vaginitis Condition: Stable Prescriptions: New doxycycline hyclate 100 mg tablet 100 mg PO BID 7 Days Qty: 14 0RF Discharge Orders: Discharge ED (Routine); Ordered 08/21/25 Ordered By: Cortes Julio Referrals: Octavio Hidalgo FNP [Primary Care Provider, Family Practice] Patient Instructions: Patient Portal & Jos Instructions Activity Restrictions/Additional Instructions: Discharge Instructions: DUB & STI Diagnosis and Treatment: - You have been diagnosed with dysfunctional uterine bleeding and trichomoniasis , a common sexually transmitted infection (STI). - You received a single dose of metronidazole (2 grams) in the emergency department to treat trichomoniasis. - You are starting doxycycline 100 mg twice daily for 7 days for possible additional infection coverage. What to Expect: - Metronidazole should help clear the trichomoniasis infection and reduce symptoms such as vaginal discharge, irritation, or discomfort. - Doxycycline is used to treat possible bacterial infections that can cause cervicitis or pelvic inflammatory disease. - Some side effects of these medications may include nausea, stomach upset, or sensitivity to sunlight. Take doxycycline with a full glass of water and avoid lying down for 30 minutes after taking it. Important Instructions: - Do not have sex for at least 7 days after treatment, and until both you and your partner(s) have completed treatment and are free of symptoms. This helps prevent spreading the infection or getting re-infected. - Your sexual partner(s) should also be treated for trichomoniasis, even if they do not have symptoms, to prevent reinfection. - Avoid alcohol while taking metronidazole and for 24 hours after the last dose, as it can cause unpleasant reactions. - If you experience severe abdominal pain, fever, heavy bleeding, or symptoms that worsen, seek medical attention promptly. Follow-Up: - You will be referred to an [facility] specialist for further evaluation and management of your bleeding and to ensure all infections are treated appropriately. - Return for follow-up testing in about 3 months to make sure the infection is cleared, as recommended for trichomoniasis. - If you have not already been tested for other STIs (such as HIV or syphilis), this will be done at your follow-up visit. General Advice: - Take all medications as prescribed, even if you start feeling better. - Use pads instead of tampons if you are experiencing abnormal bleeding. - Keep a record of your symptoms and any side effects from medications to discuss at your next appointment. Contact Information: - If you have questions or concerns, or if your symptoms worsen, contact your healthcare provider or return to the emergency department. Next Steps: - Attend your scheduled [facility] appointment. - Ensure your partner(s) are treated. - Abstain from sexual activity until cleared by your provider. Thank you for following these instructions to help ensure your recovery and prevent complications. Print Language: Frisian Coding Level of Care Code ED Cloth Folder Hand for Carlitos Guevara
--- OUTSIDE RECORDS SUMMARY | 2025-08-21 13:47 | XMS_ITS | Encounter Summary ---
Author Organization [facility] Address [address] [place] [address] Care Team Providers Care Floor Coverer Name Role Phone Marissa Hull MD Primary Care Provider [phone] Encounter Details Date Type Department Care Team (Latest Contact Info) Description 10/01/2005 Outpatient Historical [facility] Medicine- [address] [phone] Octavio Moore, PA NO ADDRESS ON FILE ACUTE URI NOS (Primary Dx); ALLERGY, UNSPECIFIED Social History Tobacco Use Types Packs/Day Years Used Date Smoking Tobacco: Never Assessed Comments Unknown Sex and Gender Information Value Date Recorded Sex Assigned at Not on file Legal Sex Female 5:07 AM DIRECTOR OF OUTREACH Gender Identity Not on file Sexual Orientation Not on file documented as of this encounter Plan of Treatment Not on file documented as of this encounter Visit Diagnoses Diagnosis Acute upper respiratory infections of unspecified site- Primary Allergy, unspecified not elsewhere classified documented in this encounter Care Teams Floor Coverer Relationship Specialty Start Date End Date Marissa Hull MD [address] [address] PCP - General Family Practice 08/08/18 documented as of this encounter
--- OUTSIDE RECORDS SUMMARY | 2025-08-21 13:47 | XMS_ITS | Encounter Summary ---
Author Organization [facility] Address [address] [place] [address] Care Team Providers Care Automation And Controls Manager Name Role Phone Marissa Hull MD Primary Care Provider [phone] Encounter Details Date Type Department Care Team (Latest Contact Info) Description 07/11/[address] 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
--- OUTSIDE RECORDS SUMMARY | 2025-08-21 13:47 | XMS_ITS | Encounter Summary ---
Author Organization [facility] Address [address] [place] [address] Care Team Providers Care Lumber Press Operator Name Role Phone Marissa Hull MD Primary Care Provider Encounter Details Date Type Department Care Team (Latest Contact Info) Description 02/26/2005 Outpatient Historical [facility] Medicine- [address] [phone] Octavio Moore, PA NO ADDRESS ON FILE ACUTE URI NOS (Primary Dx); INJURY OF FACE AND NECK Social History Tobacco Use Types Packs/Day Years Used Date Smoking Tobacco: Never Assessed Comments Unknown Sex and Gender Information Value Date Recorded Sex Assigned at Not on file Legal Sex Female 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
--- OUTSIDE RECORDS SUMMARY | 2025-08-21 13:47 | XMS_ITS | Encounter Summary ---
Author Organization [facility] Address [address] [place] [address] Care Team Providers Care Mental Health Social Worker Name Role Phone Marissa Hull MD Primary Care Provider Encounter Details Date Type Department Care Team (Latest Contact Info) Description 09/21/2005 Outpatient Historical [facility] Medicine- [address] [phone] Octavio Moore, PA NO ADDRESS ON FILE ACUTE URI NOS (Primary Dx) Social History Tobacco Use Types Packs/Day Years Used Date Smoking Tobacco: Never Assessed Comments Unknown Sex and Gender Information Value Date Recorded Sex Assigned at Not on file Legal Sex Female 5:07 AM PSYCHOTHERAPIST COUNSELOR Gender Identity Not on file Sexual Orientation Not on file documented as of this encounter Plan of Treatment Not on file documented as of this encounter Visit Diagnoses Diagnosis Acute upper respiratory infections of unspecified site- Primary documented in this encounter Care Teams Mental Health Social Worker Relationship Specialty Start Date End Date Marissa Hull MD [address] [phone] PCP - General Family Practice 08/08/18 documented as of this encounter
--- OUTSIDE RECORDS SUMMARY | 2025-08-21 13:47 | XMS_ITS | Encounter Summary ---
Author Organization [facility] Address [address] [place] [address] Care Team Providers Care Specialty Finishing Utility Person Name Role Phone Marissa Hull MD Primary Care Provider Encounter Details Date Type Department Care Team (Latest Contact Info) Description 10/10/2004 Outpatient Historical [facility] Family Medicine- [address] [place] [address] Octavio Moore, PA NO ADDRESS ON FILE NAUSEA WITH VOMITING (Primary Dx) Social History Tobacco Use Types Packs/Day Years Used Date Smoking Tobacco: Never Assessed Comments Unknown Sex and Gender Information Value Date Recorded Sex Assigned at Not on file Legal Sex Female 5:07 AM UNDER SHERIFF Gender Identity Not on file Sexual Orientation Not on file documented as of this encounter Plan of Treatment Not on file documented as of this encounter Visit Diagnoses Diagnosis Nausea with vomiting- Primary documented in this encounter Care Teams Specialty Finishing Utility Person Relationship Specialty Start Date End Date Marissa Hull MD [address] [facility] [address] [place] [address] PCP - General Family Practice 08/08/18 documented as of this encounter
--- OUTSIDE RECORDS SUMMARY | 2025-08-21 13:47 | XMS_ITS | Encounter Summary ---
Author Organization [facility] Address [address] [place] [address] Care Team Providers Care Newspaper Distributor Supervisor Name Role Phone Marissa Hull MD Primary Care Provider Encounter Details Date Type Department Care Team (Latest Contact Info) Description 02/25/2004 Outpatient Historical [facility] Medicine- [address] [phone] Octavio Moore, PA NO ADDRESS ON FILE OTHER ATOPIC DERMATITIS (Primary Dx) Social History Tobacco Use Types Packs/Day Years Used Date Smoking Tobacco: Never Assessed Comments Unknown Sex and Gender Information Value Date Recorded Sex Assigned at Not on file Legal Sex Female 5:07 AM CHEST PAIN COORDINATOR Gender Identity Not on file Sexual Orientation Not on file documented as of this encounter Plan of Treatment Not on file documented as of this encounter Visit Diagnoses Diagnosis Other atopic dermatitis and related conditions- Primary documented in this encounter Care Teams Newspaper Distributor Supervisor Relationship Specialty Start Date End Date Marissa Hull MD [address] [facility] [address] [place] [address] PCP - General Family Practice 08/08/18 documented as of this encounter
--- OUTSIDE RECORDS SUMMARY | 2025-08-21 13:47 | XMS_ITS | Encounter Summary ---
Author Organization [facility] Address [address] [place] [address] Care Team Providers Care Electric Dolly Operator Name Role Phone Marissa Hull MD Primary Care Provider [phone] Encounter Details Date Type Department Care Team (Latest Contact Info) Description 09/19/2005 Outpatient Historical [facility] Family Medicine [address] [address] Octavio Moore PA NO ADDRESS ON FILE ACUTE URI NOS (Primary Dx) Social History Tobacco Use Types Packs/Day Years Used Date Smoking Tobacco: Never Assessed Comments Unknown Sex and Gender Information Value Date Recorded Sex Assigned at Not on file Legal Sex Female 5:07 AM TIMEKEEPING SUPERVISOR Gender Identity Not on file Sexual Orientation Not on file documented as of this encounter Plan of Treatment Not on file documented as of this encounter Visit Diagnoses Diagnosis Acute upper respiratory infections of unspecified site- Primary documented in this encounter Care Teams Electric Dolly Operator Relationship Specialty Start Date End Date Marissa Hull MD [address] [address] PCP - General Family Practice 08/08/18 documented as of this encounter
--- OUTSIDE RECORDS SUMMARY | 2025-08-21 13:47 | XMS_ITS | Encounter Summary ---
Author Organization [facility] Address [address] [place] [address] Care Team Providers Care Small Piece Cutter Name Role Phone Marissa Hull MD Primary Care Provider Encounter Details Date Type Department Care Team (Latest Contact Info) Description 07/04/2007 Outpatient Historical [facility] Medicine- [address] [phone] Octavio Moore, PA NO ADDRESS ON FILE Other General Medical Examination for Administrative Purposes (Primary Dx); Dermatophytosis of Unspecified Site Social History Tobacco Use Types Packs/Day Years Used Date Smoking Tobacco: Never Assessed Comments Unknown Sex and Gender Information Value Date Recorded Sex Assigned at Not on file Legal Sex Female 5:07 AM ZANJERO Gender Identity Not on file Sexual Orientation Not on file documented as of this encounter Plan of Treatment Not on file documented as of this encounter Visit Diagnoses Diagnosis Other general medical examination for administrative purposes- Primary Dermatophytosis of unspecified site documented in this encounter Care Teams Small Piece Cutter Relationship Specialty Start Date End Date Marissa Hull MD [address] [facility] [address] [place] [phone] PCP - General Family Practice 08/08/18 documented as of this encounter
--- OUTSIDE RECORDS SUMMARY | 2025-08-21 13:47 | XMS_ITS | Encounter Summary ---
Author Organization [facility] Address [address] [place] [address] Care Team Providers Care Child Care Specialist Name Role Phone Marissa Hull MD Primary Care Provider Encounter Details Date Type Department Care Team (Latest Contact Info) Description 2003 Outpatient Historical [facility] Medicine [address] [phone] Billy Angela MD [address] [facility] [address] [place] [address] UNSPEC CONSTIPATION (Primary Dx) Social History Tobacco Use Types Packs/Day Years Used Date Smoking Tobacco: Never Assessed Comments Unknown Sex and Gender Information Value Date Recorded Sex Assigned at Not on file Legal Sex Female 5:07 AM RUBBER THREAD SPOOLER Gender Identity Not on file Sexual Orientation Not on file documented as of this encounter Plan of Treatment Not on file documented as of this encounter Visit Diagnoses Diagnosis Unspecified constipation- Primary documented in this encounter Care Teams Child Care Specialist Relationship Specialty Start Date End Date Marissa Hull MD [address] [address] PCP - General Family Practice 08/08/18 documented as of this encounter
--- OUTSIDE RECORDS SUMMARY | 2025-08-21 13:47 | XMS_ITS | Encounter Summary ---
Author Organization [facility] Address [address] [place] [address] Care Team Providers Care Batch Heat Treat Operator Name Role Phone Marissa Hull MD Primary Care Provider Encounter Details Date Type Department Care Team (Latest Contact Info) Description 10/26/2005 Outpatient Historical [facility] Medicine- [address] [phone] Octavio Moore, PA NO ADDRESS ON FILE DERMATITIS NOS (Primary Dx); ALLERGY, UNSPECIFIED; OTHER ATOPIC DERMATITIS Social History Tobacco Use Types Packs/Day Years Used Date Smoking Tobacco: Never Assessed Comments Unknown Sex and Gender Information Value Date Recorded Sex Assigned at Not on file Legal Sex Female 5:07 AM DEPUTY SHERIFF CHIEF Gender Identity Not on file Sexual Orientation Not on file documented as of this encounter Plan of Treatment Not on file documented as of this encounter Visit Diagnoses Diagnosis Contact dermatitis and other eczema, due to unspecified cause- Primary Allergy, unspecified not elsewhere classified Other atopic dermatitis and related conditions documented in this encounter Care Teams Batch Heat Treat Operator Relationship Specialty Start Date End Date Marissa Hull MD [address] [phone] PCP - General Family Practice 08/08/18 documented as of this encounter
--- OUTSIDE RECORDS SUMMARY | 2025-08-21 13:47 | XMS_ITS | Encounter Summary ---
Author Organization [facility] Address [address] [place] [address] Care Team Providers Care Firestop/Containment Worker Name Role Phone Marissa Hull MD Primary Care Provider Encounter Details Date Type Department Care Team (Latest Contact Info) Description 08/04/2004 Outpatient Historical [facility] Medicine- [address] [phone] Octavio Moore, PA NO ADDRESS ON FILE NAUSEA WITH VOMITING (Primary Dx) Social History Tobacco Use Types Packs/Day Years Used Date Smoking Tobacco: Never Assessed Comments Unknown Sex and Gender Information Value Date Recorded Sex Assigned at Not on file Legal Sex Female 5:07 AM PRACTICE ASSISTANT Gender Identity Not on file Sexual Orientation Not on file documented as of this encounter Plan of Treatment Not on file documented as of this encounter Visit Diagnoses Diagnosis Nausea with vomiting- Primary documented in this encounter Care Teams Firestop/Containment Worker Relationship Specialty Start Date End Date Marissa Hull MD [address] [facility] [address] [place] [address] PCP - General Family Practice 08/08/18 documented as of this encounter
--- OUTSIDE RECORDS SUMMARY | 2025-08-21 13:47 | XMS_ITS | Clinical Summary ---
Author Organization [facility] Address [address] [place] [address] Care Team Providers Care Nurses' Registry Director Name Role Phone Mendoza Abdul MD Primary Care Provider [phone] Allergies No known active allergies Medications buPROPion HCL (Wellbutrin SR) 100 mg Sustained Release 12 hour tabletIndications: IGLESIA (generalized anxiety disorder),Attentio n deficit hyperactivity disorder (ADHD), combined type Take 1 Tablet (100 mg) by mouth 2 times daily. Take 1 tablet daily for 1 week, then increase to 1 tablet twice daily 60 Tablet 2 Active Active Problems Problem Noted Date Diagnosed Date Tachycardia 03/05/2025 Underweight (BMI < 18.5) 03/05/2025 IGLESIA (generalized anxiety disorder) 03/05/2025 Vapes nicotine containing substance 03/05/2025 Attention deficit hyperactiv ity disorder (ADHD), combined type 03/05/2025 Agoraphobia 03/05/2025 Resolved Problems Problem Noted Date Diagnosed Date Resolved Date Abnormal thyroid function test 10/23/2017 03/05/2025 Weight loss 10/23/2017 03/05/2025 Palpitation 10/23/2017 03/05/2025 Encounters Date Type Department Care Team Description 07/27/2025 External Device Data ST[facility] ABSTRACTION Provider, Abstract 07/20/2025 External Device Data ST[facility] ABSTRACTION Provider, Abstract 07/20/2025 External Device Data ST[facility] ABSTRACTION Provider, Abstract 07/20/2025 External Device Data [facility] ABSTRACTION Provider, Abstract 06/29/2025 External Device Data ST[facility] ABSTRACTION Provider, Abstract 06/16/2025 External Device Data STL ABSTRACTION Provider, Abstract 05/26/2025 External Device Data ST[facility] ABSTRACTION Provider, Abstract 05/26/2025 External Device Data STL ABSTRACTION Provider, Abstract from Last 3 Months Family History Relation Name Status Comments Mother Alive Social History Tobacco Use Types Packs/Day Years Used Date Smoking Tobacco: Former Cigarettes Smokeless Tobacco: Never Tobacco Cessation:Counseling Given: Not Answered Alcohol Use Standard Drinks/Week Comments Never 0 (1 standard drink = 0.6 oz pur e alcohol) Adolescent Education Answer Date Record ed Getting School Help Needed Not on file 06/13 Feeling Safe Answer Date Recorded Are you in a relationship wi th someone who hurts you emotionally and/or physically? No 08/04/2024 Comments No Sex and Gender Information Value Date Recorded Sex Assigned at Not on file Legal Sex Female 4:50 AM BODY SHOP WORKER Gender Identity Not on file Sexual Orientation Not on file Last Filed Vital Signs Vital Sign Reading Time Taken Comments Blood Pressure 94/62 03/05/2025 11:23 AM CDT Pulse 130 03/05/2025 11:23 AM CDT Temperature 36.3 C (97.4 F) 03/05/2025 11:23 AM CDT Respiratory Rate 18 03/05/2025 11:23 AM CDT Oxygen Saturation 98% 03/05/2025 11:23 AM CDT Inhaled Oxygen Concentration - - Weight 48.5 kg (107 lb) 03/05/2025 11:23 AM CDT Height 167.6 cm (5' 6 ) 03/05/2025 11:23 AM CDT Body Mass Index 17.27 03/05/2025 11:23 AM CDT Plan of Treatment Upcoming Encounters Date Type Department Care Team (Late st Contact Info) Description 03/02/2026 2:00 PM CDT Office Visit [facility] Medicine [place] [address] [address] Mendoza Abdul MD [address] [address] Health Maintenance Due Date Last Done Comments CHLAMYDIA SCREENING (ANNUAL) 11-24 YEARS 2014 HPV VACCINES (1 - 3-dose series) 2018 DTAP/TDAP/TD VACCINES (1 - Tdap) 2022 HEPATITIS B VACCINES (1 of 3 - 19+ 3-dose series) 2022 CERVICAL CANCER SCREENING 2024 HPV/Cotest (21-29) 2024 PAP SMEAR 2024 INFLUENZA VACCINE (#1) 2025 11/07/2021 Preventative Visit-Managed Medicaid 03/03/2026 Postponed from 10/20 (Therapeutic Plan Prohibits) Insurance [facility] MEDICAID [place]ICAID [place] Care Teams Nurses' Registry Director Relationship Specialty Start Date End Date Mendoza Abdul MD [address] [facility] [address] [place] [phone] PCP - General Family Practice 09/22/21
--- OUTSIDE RECORDS SUMMARY | 2025-08-21 13:47 | XMS_ITS | Clinical Summary ---
Author Organization [facility] Address [address] [facility] [place] [address] Care Team Providers Care Talent Acquisition Coordinator Name Role Phone Marissa Hull MD Primary Care Provider Allergies No known active allergies Medications Drospirenone-Eth inyl estradiol (AYDEE, Willow,) 3-0.02 mg tablet Take 1 Tablet by mouth daily. 28 Tablet 12 09/08/2018 Active Active Problems Problem Noted Date Diagnosed Date Abnormal thyroid function test 10/23/2017 Weight loss 10/23/2017 Palpitation 10/23/2017 Social History Tobacco Use Types Packs/Day Years Used Date Smoking Tobacco: Every Day Cigarettes 0.1 0.8 Smokeless Tobacco: Never Alcohol Use Standard Drinks/Week Comments Never 0 (1 standard drink = 0.6 oz pur e alcohol) Comments No Sex and Gender Information Value Date Recorded Sex Assigned at Not on file Legal Sex Female 5:07 AM JIG INSPECTOR Gender Identity Not on file Sexual Orientation Not on file Last Filed Vital Signs Vital Sign Reading Time Taken Comments Blood Pressure 110/82 01/26/2021 12:16 PM CDT Pulse 120 01/26/2021 12:16 PM CDT Temperature 36.4 C (97.6 F) 01/26/2021 12:16 PM CDT Respiratory Rate 12 01/26/2021 12:16 PM CDT Oxygen Saturation 99% 01/26/2021 12:16 PM CDT Inhaled Oxygen Concentration - - Weight 51.5 kg (113 lb 9.6 oz) 01/26/2021 12:16 PM CDT Height 165.1 cm (5' 5 ) 01/26/2021 12:16 PM CDT Body Mass Index 18.9 01/26/2021 12:16 PM CDT Plan of Treatment Health Maintenance Due Date Last Done Comments CHLAMYDIA SCREENING (ANNUAL) 11-24 YEARS 2014 HPV VACCINES (1 - 3-dose series) 2018 DTAP/TDAP/TD VACCINES (1 - Tdap) 2022 HEPATITIS B VACCINES (1 of 3 - 19+ 3-dose series) 10/11 Preventative Visit-Managed Medicaid 10/20/202203/02 CERVICAL CANCER SCREENING 2024 HPV/Cotest (21-29) 2024 PAP SMEAR 2024 INFLUENZA VACCINE (#1) 2025 Insurance [facility] [place] Care Teams Talent Acquisition Coordinator Relationship Specialty Start Date End Date Marissa Hull MD [address] [facility] [address] [place] [address] PCP - General Family Practice 08/08/18
--- OUTSIDE RECORDS SUMMARY | 2025-08-21 13:47 | XMS_ITS | Encounter Summary ---
Author Organization [facility] Address [address] [place] [address] Care Team Providers Care Chemical Laboratory Tester Name Role Phone Marissa Hull MD Primary Care Provider Encounter Details Date Type Department Care Team (Latest Contact Info) Description 12/04/2004 Outpatient Historical [facility]- [address] [phone] Octavio Moore, [place] NO ADDRESS ON FILE OPEN WOUND OF FACE NOS (Primary Dx) Social History Tobacco Use Types Packs/Day Years Used Date Smoking Tobacco: Never Assessed Comments Unknown Sex and Gender Information Value Date Recorded Sex Assigned at Not on file 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
[2025-08-21 13:56] LABS: Hematocrit 43.2 % (36-47); Hemoglobin 13.40 g/dL (11.27-16.99); Mean Corpuscular HGB Conc 31.0 g/dL (30-55); Mean Corpuscular Hemoglobin 27.1 pg (27-33); Mean Corpuscular Volume 87.4 fl (85-98); Nucleated Red Blood Cells % 0 %; Platelet Count 332 10^3/cmm (157-399); Red Blood Count 4.94 10^6/uL (3.85-5.65); White Blood Count 9.52 10^3/uL (3.29-11.43)
[2025-08-21 14:07] LABS: HCG, Serum Qual Negative (Negative)
[2025-08-21 14:17] LABS: Alanine Aminotransferase 10 U/L (0-33); Albumin Level 4.3 g/dL (3.5-5.2); Alkaline Phosphatase 69 U/L (35-105); Anion Gap 16.8 (5-19); Aspartate Amino Transferase 15 U/L (0-32); Blood Urea Nitrogen 14 mg/dL (6-20); Calcium 9.2 mg/dL (8.5-10.5); Carbon Dioxide 23 mmol/L (22-29); Chloride 103 mmol/L (98-107); Creatinine Clr Calc Pharmacy 79.6539; Globulin 3.5 g/dL (1.3-4.6); Glucose 87 mg/dL (65-115); Osmolality Calculated 288 mOsm/kg (285-295); Potassium 3.8 mmol/L (3.5-5.1); Sodium 139 mmol/L (136-145); Total Protein 7.8 g/dL (6.6-8.7)
[2025-08-21 16:32] LABS: Specific Gravity, Urine 1.020 (1.005-1.030)
[2025-08-21 16:33] LABS: Add Urine Microscopic? YES; Glucose Urine UA Norm (Normal); Nitrate Urine Positive (Negative); UA Manual Slide Review YES
--- NOTE | 2025-08-24 15:55 | PC.NURSE ---
[facility] complete.
== END 2025-08-21 16:59 | disposition home or self-care (01) ==
PROVIDERS: Emergency Provider Physician Assistant; PCP Nurse Practitioner Family
DX: N93.8 Other specified abnormal uterine and vaginal bleeding (principal); A59.01 Trichomonal vulvovaginitis
CPT/HCPCS: 36415; 76830; 80053; 81001; 84703; 85025; 86850; 86900; 99284; J9999